=== PATIENT | male | born 1995 | race Caucasian/White ===

== ENCOUNTER 2016-06-10 11:16 | Emergency (ER) | payer OTHER ==
[~2016-06-10] VITALS: Wt 113.6 kg
--- NOTE | 2016-06-10 12:25 | ERD ---
ER Documentation Chief Complaint Date/Time DATE: 06/10/16 TIME: 12:23 Chief Complaint bilateral knee pain from basketball. mild swelling no deformity HPI 21-year-old male comes in with bilateral knee pain after playing basketball 2-3 weeks ago. Patient states that he twisted that and now he developed some swelling. He denies any fevers or chills. ROS All systems reviewed and are negative except as per history of present illness. Medications Home Meds Active Scripts Naproxen* (Naprosyn*) 500 Mg Tablet, 500 MG PO BID Y for PAIN AND/OR INFLAMMATION, #30 TAB Prov:CHINEDU CASEY PA-C 06/10/16 Reported Medications [None] No Conflict Check 01/08/11 Allergies Allergies: Coded Allergies: No Known Drug Allergies (Verified Allergy, 01/08/11) PMhx/Soc History of Surgery: No Anesthesia Reaction: No Hx Neurological Disorder: No Hx Respiratory Disorders: No Hx Cardiac Disorders: No Hx Psychiatric Problems: No Hx Miscellaneous Medical Probl: No Hx Alcohol Use: No Hx Substance Use: No Hx Tobacco Use: No Smoking Status: Never smoker Physical Exam Vitals Vital Signs Date Time Temp Pulse Resp B/P Pulse Ox O2 Delivery O2 Flow Rate FiO2 06/10/16 11:19 98.3 71 20 134/85 98 Physical Exam General: Well-developed, well-nourished. The patient appears in no acute distress. HEENT: Head is normocephalic, atraumatic. No scleral icterus. Neck: Supple. Nontender. Lungs: Clear to auscultation. Normal air movement. Heart: Regular rate and rhythm. S1 and S2 are normal. No murmurs, gallops, or rubs. Abdomen: Nondistended. Lower Extremity - bilateral: Skin: No laceration Compartments: Soft, mild joint line tenderness on the left side noted Motor: Full active range of motion hip/knee/ankle/foot Sensation: Intact to light touch FDWS/MF/LF/P surfaces. Bones: Nontender pelvis/knee/proximal tibia/ malleoli/foot Joints: No effusion or laxity Pulses/Perfusion: 2+ DP, Capillary refill < 2 seconds Neurologic: Alert and oriented 3. No focal deficits. Normal speech and gait. Skin: Normal turgor. No rash or lesions. Results 24 hrs PROCEDURE: XR bilateral knees. CLINICAL INDICATION: Knee pain TECHNIQUE: JULISSA SCHUSTER and lateral views of each knee are available for review. COMPARISON: None available FINDINGS: There are findings consistent with old Emnhrjk-Vjdlff-Kpyshskal disease involving the right and left knee. This is associated with calcification/ ossification of the patellar tendon at the insertion to the inferior aspect of the patella. There is otherwise normal mineralization, architecture and alignment. No fractures are identified. No osseous lesions are identified. The joints are unremarkable. The soft tissues are unremarkable. 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 RPTAT: HGDB .Steve Vang MD, MD Date Time Electronically viewed and signed by .Steve Vang MD, MD on 06/10/2016 13:57 Procedures/MDM ED course: Bilateral knee x-rays were done MDM: 21-year-old male comes in with bilateral knee injuries after playing basketball, no fracture, but suspect meniscal injury as he reports clicking at home and there is some joint line tenderness appreciated on the left knee. X- rays were done and were unremarkable for any acute findings. There is evidence of Old Ejcymuc-Tdenbm-Kmwrdhfve disease. Patient is to follow-up with orthopedics within the next week. Departure Diagnosis: Primary Impression: Knee pain Condition: CHINEDU Vazquez PA-C Jun 10, 2016 12:25
--- NOTE | 2016-06-10 13:57 | RADRPT ---
PROCEDURE: XR bilateral knees. CLINICAL INDICATION: Knee pain TECHNIQUE: AP, PA and lateral views of each knee are available for review. COMPARISON: None available FINDINGS: There are findings consistent with old Zrmxnjv-Nlylqe-Ceosrmmgp disease involving the right and left knee. This is associated with calcification/ossification of the patellar tendon at the insertion to the inferior aspect of the patella. There is otherwise normal mineralization, architecture and alignment. No fractures are identified. No osseous lesions are identified. The joints are unremarkable. The soft tissues are unremarkable . IMPRESSION: Old Bmnrlek-Onfohr-Jofxxzpoc disease involving the right and left knee. RPTAT: HGDB .Steve Vang MD, MD Date Time Electronically viewed and signed by .Steve Vang MD, on 06/10/2016 13:57 .B/
[2016-06-10] MEDS ORDERED: NAPR-260 PO (14:03)
== END 2016-06-10 14:21 | disposition home or self-care (01) ==
LOC: FTE 11:16
DX: S89.92XA Unspecified injury of left lower leg, initial encounter (principal); S89.91XA Unspecified injury of right lower leg, initial encounter; X50.1XXA Overexertion from prolonged static or awkward postures, initial encounter; Y92.9 Unspecified place or not applicable
CPT/HCPCS: 73562; Z7502